=== PATIENT | male | born 2000 | race Caucasian/White ===

== ENCOUNTER → 2024-07-15 | Outpatient (CLI) | payer BC ==
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
--- NOTE | 2024-07-15 17:16 | XR ---
EXAMINATION TYPE: XR wrist complete LT DATE OF EXAM: 07/15/2024 4:58 PM COMPARISON: None CLINICAL INDICATION: Male, 23 years old with history of PAIN LEFT WRIST X MONTHS; [facility] TECHNIQUE: XR wrist complete LT; examined in the Frontal, navicular, lateral, and oblique. FINDINGS: No acute osseous pathology, joint dislocation, or joint effusion. No evidence of any soft tissue swelling is seen. IMPRESSION: No acute osseous pathology. [facility], , 07/15/2024 5:13 PM
== END | disposition home or self-care (01) ==
LOC: RADXRMAIN 16:35
PROVIDERS: ATTEND Family Medicine
DX: M51.360 Other intervertebral disc degeneration, lumbar region with discogenic back pain only (principal); M47.896 Other spondylosis, lumbar region; M99.73 Connective tissue and disc stenosis of intervertebral foramina of lumbar region; M25.532 Pain in left wrist
CPT/HCPCS: 72100

== ENCOUNTER 2024-08-16 02:35 | Emergency (ER) | payer BC ==
[2024-08-16 02:45] VITALS: BP 138/76; PULSE 104; RESP 18; TEMP 98.7
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
== END 2024-08-16 04:40 | disposition home or self-care (01) ==
LOC: EC 02:35
DX: S01.511A Laceration without foreign body of lip, initial encounter (principal); T74.11XA Adult physical abuse, confirmed, initial encounter; Y04.8XXA Assault by other bodily force, initial encounter
CPT/HCPCS: 99283